=== PATIENT | female | born 1975 | race Caucasian/White ===

== ENCOUNTER 2019-08-08 15:05 | Outpatient (CLI) | payer MEDICAID, SELFPAY ==
[2019-08-08 15:46] LABS: Basophils # 0.2 10^3/uL (0.0-0.1); Basophils % 1.2 %; Eosinophils # 0.4 10^3/uL (0.0-0.8); Eosinophils % 3.2 %; Hematocrit 49.1 % (37.0-47.0); Hemoglobin 16.5 g/dL (11.5-15.3); Lymphocytes # 5.2 10^3/uL (0.8-4.8); Mean Corpuscular HGB Conc 33.6 g/dL (30.0-36.0); Mean Corpuscular Hemoglobin 30.2 pg (28.0-34.0); Mean Corpuscular Volume 89.8 fL (81-99); Monocytes # 0.6 10^3/uL (0.2-0.9); Monocytes % 5.1 %; Neutrophils % 48.3 %; Nucleated Red Blood Cells % 0 %; Platelet Count 312 10^3/cmm (130-400); Red Blood Count 5.47 10^6/uL (4.1-5.3); White Blood Count 12.4 10^3/uL (4.0-10.0)
[2019-08-08 15:54] LABS: Alanine Aminotransferase 11 U/L (0-33); Albumin Level 4.7 g/dL (3.5-5.2); Alkaline Phosphatase 87 IU/L (35-105); Anion Gap 14.4 (5-19); Aspartate Amino Transferase 24 U/L (0-32); Blood Urea Nitrogen 8 mg/dL (6-20); Calcium 10.9 mg/Dl (8.6-10.0); Carbon Dioxide 31 mmol/L (22-29); Chloride 98 mmol/L (98-107); Glomerular Filtration Rate 77.6 mL/min (90-130); Glucose 103 mg/dL (74-109); Potassium 4.4 mmol/L (3.5-5.1); Sodium 139 mmol/L (136-145); Total Bilirubin 0.2 mg/dL (0.15-1.2); Total Protein 7.7 g/dL (6.6-8.7)
[2019-08-08 16:39] LABS: Thyroid Stimulating Hormone 0.16 uIU/mL (0.27-4.20)
[2019-08-08 16:52] LABS: Estmated Average Glucose 128; Hemoglobin A1C 6.1 % (4.0-6.0)
== END 2019-08-08 15:06 | disposition home or self-care (01) ==
LOC: LAB 15:07
PROVIDERS: Family Provider Nurse Practitioner; PCP Nurse Practitioner; Visit Provider Nurse Practitioner
DX: E11.42 Type 2 diabetes mellitus with diabetic polyneuropathy (principal)
CPT/HCPCS: 36415; 80053; 83036; 84443; 85025

== ENCOUNTER 2019-12-06 13:28 | Outpatient (CLI) | payer MEDICAID, SELFPAY ==
[2019-12-06 13:51] LABS: Basophils # 0.2 10^3/uL (0.0-0.1); Basophils % 1.1 %; Eosinophils # 0.4 10^3/uL (0.0-0.8); Eosinophils % 2.6 %; Hematocrit 49.1 % (37.0-47.0); Hemoglobin 16.1 g/dL (11.5-15.3); Lymphocytes # 6.5 10^3/uL (0.8-4.8); Mean Corpuscular HGB Conc 32.8 g/dL (30.0-36.0); Mean Corpuscular Hemoglobin 30.4 pg (28.0-34.0); Mean Corpuscular Volume 92.6 fL (81-99); Mean Platelet Volume 9.7 fL (7.4-10.4); Monocytes # 1.1 10^3/uL (0.2-0.9); Monocytes % 7.9 %; Neutrophils # 5.2 10^3/uL (1.8-7.7); Neutrophils % 39.2 %; Nucleated Red Blood Cells % 0 %; Platelet Count 443 10^3/cmm (130-400); White Blood Count 13.3 10^3/uL (4.0-10.0)
[2019-12-06 14:37] LABS: Alanine Aminotransferase 15 U/L (0-33); Albumin Level 4.8 g/dL (3.5-5.2); Alkaline Phosphatase 92 IU/L (35-105); Anion Gap 16.5 (5-19); Aspartate Amino Transferase 20 U/L (0-32); Blood Urea Nitrogen 8 mg/dL (6-20); Calcium 10.4 mg/dL (8.5-10.5); Carbon Dioxide 28 mmol/L (22-29); Chloride 102 mmol/L (98-107); Globulin 3.2 g/dL (1.3-4.6); Glomerular Filtration Rate 77.6 mL/min (90-130); Glucose 81 mg/dL (65-115); Osmolality Calculated 289 mOsm/kg (285-295); Potassium 4.5 mmol/L (3.5-5.1); Sodium 142 mmol/L (136-145); Total Bilirubin 0.3 mg/dL (0.15-1.2)
== END 2019-12-06 13:29 | disposition home or self-care (01) ==
LOC: LAB 13:33
PROVIDERS: PCP Nurse Practitioner; Visit Provider Transplant Surgery
DX: K86.89 Other specified diseases of pancreas (principal)
CPT/HCPCS: 36415; 80053; 85025

== ENCOUNTER → 2019-12-20 09:31 | Outpatient (BNVA) | payer MEDICAID, SELFPAY | PROVIDERS: PCP Nurse Practitioner; Visit Provider Nurse Practitioner | DX: E78.2 Mixed hyperlipidemia (principal); Z86.73 Personal history of transient ischemic attack (TIA), and cerebral infarction without residual deficits; E11.00 Type 2 diabetes mellitus with hyperosmolarity without nonketotic hyperglycemic-hyperosmolar coma (NKHHC) | CPT/HCPCS: 80061; 82306; 82550; 82947; 83036; 83695; 84439; 84443; 84450; 84460; 85384; 86141 ==

== ENCOUNTER → 2020-03-18 15:05 | Outpatient (BNVA) | payer MEDICAID, SELFPAY | PROVIDERS: PCP Nurse Practitioner; Referring Provider Dermatology; Visit Provider Dermatology | DX: D48.9 Neoplasm of uncertain behavior, unspecified (principal); L82.0 Inflamed seborrheic keratosis; D23.9 Other benign neoplasm of skin, unspecified; F17.210 Nicotine dependence, cigarettes, uncomplicated | CPT/HCPCS: 11102; 17000; 88304; 88305; 99203; 99204 ==

== ENCOUNTER 2020-05-19 09:37 | Outpatient (CLI) | payer MEDICAID, SELFPAY ==
[2020-05-19 10:31] LABS: Chol HDL Ratio 2.32 mg/dL (0.0-4.40); Cholesterol 176 mg/dL (0-200); HDL Cholesterol 76 mg/dL (60-100); LDL Cholesterol Calculated 74 mg/dL (50-129); LDL HDL Ratio 0.97 RATIO (0.00-3.22); Triglycerides 132 mg/dL (0-150)
[2020-05-19 10:42] LABS: Alanine Aminotransferase 13 U/L (0-33); Albumin Level 4.5 g/dL (3.5-5.2); Alkaline Phosphatase 70 IU/L (35-105); Anion Gap 14.7 (5-19); Aspartate Amino Transferase 16 U/L (0-32); Blood Urea Nitrogen 17 mg/dL (6-20); Calcium 9.9 mg/dL (8.5-10.5); Carbon Dioxide 29 mmol/L (22-29); Chloride 100 mmol/L (98-107); Globulin 2.5 g/dL (1.3-4.6); Glomerular Filtration Rate 90.1 mL/min (90-130); Glucose 107 mg/dL (65-115); Osmolality Calculated 290 mOsm/kg (285-295); Potassium 4.7 mmol/L (3.5-5.1); Sodium 139 mmol/L (136-145); Thyroid Stimulating Hormone 3.11 uIU/mL (0.27-4.20); Total Bilirubin 0.3 mg/dL (0.15-1.2)
[2020-05-19 10:45] LABS: Estmated Average Glucose 126
== END 2020-05-19 09:38 | disposition home or self-care (01) ==
LOC: LAB 09:40
PROVIDERS: PCP Nurse Practitioner
DX: E78.01 Familial hypercholesterolemia (principal); R93.1 Abnormal findings on diagnostic imaging of heart and coronary circulation; E11.00 Type 2 diabetes mellitus with hyperosmolarity without nonketotic hyperglycemic-hyperosmolar coma (NKHHC); Z79.899 Other long term (current) drug therapy
CPT/HCPCS: 36415; 80053; 80061; 83036; 84443

== ENCOUNTER → 2020-05-20 15:10 | Outpatient (BNVA) | payer MEDICAID, SELFPAY | PROVIDERS: PCP Nurse Practitioner; Visit Provider Dermatology | DX: D48.9 Neoplasm of uncertain behavior, unspecified (principal) | CPT/HCPCS: 88304 ==

== ENCOUNTER 2020-08-07 15:34 | Outpatient (CLI) | payer MEDICAID, SELFPAY ==
--- NOTE | 2020-08-07 | US_ITS ---
WS: [id number] ULTRASOUND RENAL TECHNIQUE: Ultrasound examination of both kidneys. CLINICAL INFORMATION: Left flank pain, pyelonephritis COMPARISON: None. FINDINGS: RIGHT: Right kidney is normal in size and appearance. Echogenicity: Normal. Cortical thickness: 1.0 cm; Normal. Hydronephrosis: None. Perinephric fluid: None. Right kidney measures: 12.2 cm x 4.3 cm x 4.1 cm. LEFT: Mild left hydronephrosis. Echogenicity: Normal. Cortical thickness: 1.8 cm; Normal. Hydronephrosis: Mild Perinephric fluid: None. Left kidney measures: 10.3 cm x 3.9 cm x 5.6 cm. Normal visualized aorta. Ureteral jets visualized. US/US renal BI* [id number] IMPRESSION: 1. Mild left hydronephrosis. 2. No hydronephrosis right kidney. 3. Both ureteral jets visualized.
== END 2020-08-07 15:35 | disposition home or self-care (01) ==
LOC: RAD 15:39
PROVIDERS: PCP Nurse Practitioner; Visit Provider Family Medicine
DX: R10.9 Unspecified abdominal pain (principal); N12 Tubulo-interstitial nephritis, not specified as acute or chronic; N13.30 Unspecified hydronephrosis
CPT/HCPCS: 76770

== ENCOUNTER → 2020-08-10 12:07 | Outpatient (BNVA) | payer MEDICAID, SELFPAY | PROVIDERS: PCP Nurse Practitioner; Visit Provider Nurse Practitioner | DX: R30.0 Dysuria (principal) | CPT/HCPCS: 80053; 81000; 83036; 84443 ==

== ENCOUNTER → 2021-06-07 16:52 | Outpatient (BNVA) | payer MEDICAID, SELFPAY | PROVIDERS: PCP Nurse Practitioner; Visit Provider Nurse Practitioner | DX: E11.42 Type 2 diabetes mellitus with diabetic polyneuropathy (principal); E03.8 Other specified hypothyroidism; E55.9 Vitamin D deficiency, unspecified | CPT/HCPCS: 80053; 80061; 82306; 83036; 84443 ==

== ENCOUNTER 2021-06-30 13:08 | Outpatient (CLI) | payer MEDICAID, SELFPAY ==
--- NOTE | 2021-06-30 | CT_ITS ---
WS: [email or web address] Exam: CT neck w con* [id number] Date/Time of Exam: 06/30/2021 1:12 PM Reason For Exam: OTALGIA RIGHT EAR DLP: 1072.[address] scans at [facility] use at least one of these dose optimization techniques: automated e xposure control; mA and/or kV adjustment per patient size (includes targeted exams where dose is matc hed to clinical indication); or iterative reconstruction. Compared to noncontrast study performed 09/10/2018. There was no sign of neck mass or significant cervical lymphadenopathy. The submandibular glands and parotid glands are symmetrical side to side. The airway is patent. Vascular structures are unremarkab le in appearance. No lesions seen in the region of the tongue base. Several tiny nodules scattered th roughout the thyroid gland. Benign-appearing coarse calcifications in the right thyroid lobe. The ext ernal auditory canals are clear. The middle ear cavities show no evidence of fluid or soft tissue mas s. The internal auditory canals are not enlarged or eroded. Images of the skull base are unremarkable . Emphysematous changes are noted in the visualized upper lung zones. Small lipomas noted along the a nterior margin of the right and left masseter muscles. Osseous structures are intact. CT/CT neck w con* [id number] IMPRESSION: 1. No sign of neck mass or significant cervical lymphadenopathy. 2. Both thyroid lobes contain small ill-defined nodular densities. 3. Small lipomas identified along the anterior margin of the right and left mas seter muscles. 4. No abnormal fluid collection noted in the middle ear cavities or the mastoid s.
[2021-06-30] MEDS: iohexol 300 mg/mL 100 mL Btl IV (13:33)
== END 2021-06-30 13:09 | disposition home or self-care (01) ==
PROVIDERS: PCP Nurse Practitioner; Visit Provider Specialist
DX: H92.01 Otalgia, right ear (principal); D17.79 Benign lipomatous neoplasm of other sites
CPT/HCPCS: 70491; Q9967

== ENCOUNTER → 2021-09-20 09:36 | Outpatient (BNVA) | payer MEDICAID, SELFPAY | PROVIDERS: PCP Nurse Practitioner; Visit Provider Nurse Practitioner | DX: I10 Essential (primary) hypertension (principal); J44.9 Chronic obstructive pulmonary disease, unspecified; E11.42 Type 2 diabetes mellitus with diabetic polyneuropathy; N95.2 Postmenopausal atrophic vaginitis; E03.8 Other specified hypothyroidism; M79.7 Fibromyalgia | CPT/HCPCS: 80053; 83036; 84443 ==

== ENCOUNTER → 2021-12-28 16:29 | Outpatient (BNVA) | payer MEDICAID, SELFPAY | PROVIDERS: PCP Nurse Practitioner; Visit Provider Nurse Practitioner | DX: J44.9 Chronic obstructive pulmonary disease, unspecified (principal); E11.42 Type 2 diabetes mellitus with diabetic polyneuropathy; N95.2 Postmenopausal atrophic vaginitis; M79.7 Fibromyalgia; I10 Essential (primary) hypertension; R59.9 Enlarged lymph nodes, unspecified | CPT/HCPCS: 80053; 80061; 82043; 83036; 84443; 85007; 85025 ==

== ENCOUNTER 2022-03-21 16:29 | Outpatient (CLI) | payer OTHER, MEDICAID, SELFPAY ==
--- NOTE | 2022-03-21 16:50 | XR_ITS ---
WS: [id number] Exam: XR chest 2V* [id number] Date/Time of Exam: 03/21/2022 4:50 PM Reason For Exam: J44.9 - Chronic obstructive pulmonary disease, unspecified Comparison 09/21/2017. The lungs are hyperinflated and clear. Normal cardiomediastinal silhouette. A permanent cardiac pacer superimposes the left chest. No pleural effusion. Regional bony elements appear normal. XR/XR chest 2V* [id number] IMPRESSION: 1. Pulmonary hyperinflation which may indicate obstructive lung disease. No acu te process.
[2022-03-21 16:51] LABS: Add Urine Microscopic? NO; Charge for UA Resulting for Rev
[2022-03-21 16:59] LABS: Bilirubin Urine Neg (Negative); Blood Urine Neg (Negative); Glucose Urine UA Norm (Normal); Ketones Urine Negative (Negative); Leukocyte Esterase Urine Negative (Negative); Nitrate Urine Negative (Negative); Protein Urine Neg (Negative); Specific Gravity, Urine 1.005 (1.005-1.030); Urine Appearance Clear (CLEAR); Urine Color Yellow (Yellow); Urobilinogen Urine Norm (Negative); pH Urine 6 (5-7)
== END 2022-03-21 16:30 | disposition home or self-care (01) ==
LOC: LAB 16:33
PROVIDERS: PCP Nurse Practitioner; Visit Provider Nurse Practitioner
DX: E11.42 Type 2 diabetes mellitus with diabetic polyneuropathy (principal); J44.9 Chronic obstructive pulmonary disease, unspecified
CPT/HCPCS: 71046; 80053; 81003; 85025

== ENCOUNTER 2022-04-04 10:49 | Outpatient (CLI) | payer OTHER, MEDICAID, SELFPAY ==
--- NOTE | 2022-04-04 10:58 | CT_ITS ---
WS: [id number] CT NECK WITH CONTRAST HISTORY: LOCALIZED SWELLING, MASS AND LUMP,NECK TECHNIQUE: Contiguous 5 mm axial images are performed through the neck with intravenous contrast. Sag ittal and coronal reformats are also submitted. All CT scans at [facility] use at least one o f these dose optimization techniques: automated exposure control; mA and/or kV adjustment per patient size (includes targeted exams where dose is matched to clinical indication); or iterative reconstruc tion. CONTRAST: CONTRAST: Omnipaque 350; 95 mL IV. DLP: 204.52 mGy.cm COMPARISON: 06/30/2021 Nasopharynx, oropharynx, hypopharynx and larynx are unremarkable. No soft tissue masses or abnormal e nhancement. Torus tubarius and fossa of Rosenmuller and parapharyngeal fat are normal. No significant lymphadenopathy is identified. Marker placed along the lateral RIGHT neck at the level of the submandibular gland. No underlying abnormality. No adenopathy. Thyroid gland and salivary glands are normally enhancing with no masses. No osseous abnormalities. Visualized portions of the skull base demonstrate no abnormalities. Orbits and globes are within norm al limits. No soft tissue masses. Small air-fluid level in the RIGHT sphenoid sinus. Chronic emphysematous changes at the lung apices. LEFT subclavian pacer. CT/CT neck w con* [id number] IMPRESSION: 1. No adenopathy or mass noted along the RIGHT neck at the site of the palpabl e abnormality. 2. No cervical chain enlarged lymph nodes. 3. No neck mass is identified. 4. Advanced emphysematous changes at the lung apices.
[2022-04-04] MEDS: iohexol 350 mg/mL 100 mL Btl IV (11:19)
== END 2022-04-04 10:50 | disposition home or self-care (01) ==
LOC: RAD 10:49
PROVIDERS: PCP Nurse Practitioner; Visit Provider Otolaryngology
DX: R22.1 Localized swelling, mass and lump, neck (principal)
CPT/HCPCS: 70491

== ENCOUNTER 2022-05-04 07:50 | Oncology outpatient (recurring) (ONCR) | payer OTHER, MEDICAID, SELFPAY ==
--- NOTE | 2022-05-04 09:34 | MM_ITS ---
WS: [id number] DIAGNOSTIC BILATERAL DIGITAL BREAST TOMOSYNTHESIS MAMMOGRAPHY WITH CAD HISTORY: HODGKIN'S LYMPHOMA COMPARISON: 09/05/2018 and 06/21/2017 TECHNIQUE: Bilateral craniocaudad, mediolateral oblique, and mediolateral views are submitted with to mosynthesis and SM. Computer aided detection utilized. Breast composition: There are scattered areas of fibroglandular density. No suspicious masses or calc ifications. There is benign calcification 12:00 LEFT breast. MM/[place] [id number] IMPRESSION: BI-RADS: 2-Benign FOLLOW UP: 1 Year Follow-up
[2022-05-04 10:02] LABS: Basophils # 0.2 10^3/uL (0.0-0.1); Basophils % 1.6 %; Eosinophils # 0.3 10^3/uL (0.0-0.8); Eosinophils % 2.4 %; Hematocrit 48.1 % (37.0-47.0); Hemoglobin 16.4 g/dL (11.5-15.3); Lymphocytes # 4.3 10^3/uL (0.8-4.8); Lymphocytes % 38.8 %; Mean Corpuscular HGB Conc 34.1 g/dL (30.0-36.0); Mean Corpuscular Hemoglobin 30.4 pg (28.0-34.0); Mean Corpuscular Volume 89.2 fl (81-99); Mean Platelet Volume 10.2 fL (7.4-10.4); Monocytes # 1.2 10^3/uL (0.2-0.9); Monocytes % 10.5 %; Neutrophils # 5.16 10^3/uL (1.8-7.7); Neutrophils % 46.3 %; Nucleated Red Blood Cells % 0 %; Platelet Count 427 10^3/cmm (130-400); Red Blood Count 5.39 10^6/uL (4.1-5.3); Red Cell Distribution Width 14.6 % (12.1-15.1); White Blood Count 11.2 10^3/uL (4.0-10.0)
[2022-05-04 10:04] LABS: Erythrocyte Sedimentation Rate 17 mm/hr (0-15)
[2022-05-04 10:46] LABS: Alanine Aminotransferase 8 U/L (0-33); Albumin Level 4.3 g/dL (3.5-5.2); Alkaline Phosphatase 101 U/L (35-105); Anion Gap 14.3 (5-19); Aspartate Amino Transferase 14 U/L (0-32); Blood Urea Nitrogen 6 mg/dL (6-20); Calcium 10.1 mg/dL (8.5-10.5); Carbon Dioxide 28 mmol/L (22-29); Chloride 99 mmol/L (98-107); Globulin 3.4 g/dL (1.3-4.6); Glomerular Filtration Rate 89.7 mL/min (90-130); Glucose 82 mg/dL (65-115); Iron 56 ug/dL (37-145); Lactate Dehydrogenase 233 U/L (135-214); Osmolality Calculated 281 mOsm/kg (285-295); Percent Saturation 16.1 % (20-50); Potassium 4.3 mmol/L (3.5-5.1); Sodium 137 mmol/L (136-145); Thyroid Stimulating Hormone 3.73 uIU/mL (0.27-4.20); Total Bilirubin 0.3 mg/dL (0.15-1.2); Total Iron Binding Capacity 347 mcg/dl; Total Protein 7.7 g/dL (6.6-8.7); Unsaturated Iron Binding 291 ug/dL (112-347); Vitamin B12 369 pg/mL (232-1245)
[2022-05-04 10:53] LABS: 25 Hydroxy Vitamin D > 100 ng/mL (30-100)
== END 2022-05-23 23:59 | disposition home or self-care (01) ==
PROVIDERS: PCP Nurse Practitioner; Visit Provider Internal Medicine Medical Oncology
DX: E55.9 Vitamin D deficiency, unspecified (principal); C81.11 Nodular sclerosis Hodgkin lymphoma, lymph nodes of head, face, and neck; E03.8 Other specified hypothyroidism; R53.83 Other fatigue
CPT/HCPCS: 36415; 77062; 80053; 82306; 82607; 83540; 83550; 83615; 84443; 85025; 85651; 86140

== ENCOUNTER 2022-05-10 12:19 | Outpatient (CLI) | payer OTHER, MEDICAID, SELFPAY ==
--- NOTE | 2022-05-10 12:45 | USCV_ITS ---
Megan Spain Age: 47 Gender: F : 1975 Exam Date: 05/10/2022 12:50 Ordering Phys: Scar Olmos MD Technologist: JENNIFER [place] [facility] [place]: murmur BP: 138 / 80 HR: 35 Rhythm: Sinus Technical Quality: Adequate MEASUREMENTS (Male / Female) Normal Values 2D ECHO LVOT Diameter 2.0 cm LV Ejection Fraction MOD 2C 63.1 % LV Ejection Fraction 2C AL 63.5 % LA Diameter 2.5 cm LA Width 4.0 cm LA Height 5.4 cm RA Width 3.8 cm RA Height 4.3 cm Aorta at Sinotubular Diameter 2.2 cm IVC Diameter 1.7 cm M-MODE Aortic Annulus Diameter 2.8 cm LA Ao Ratio MM 0.6 MV E Point Septal Separation 0.9 cm DOPPLER AV Peak Velocity 133.0 cm/s LVOT Peak Velocity 105.0 cm/s AV Area Cont Eq vti 3.0 cm squared AV Area Cont Eq pk 2.6 cm squared MV Peak Velocity 181.0 cm/s MV Area PHT 5.1 cm squared Mitral E to A Ratio 1.0 MV E' Velocity 88.0 cm/s Mitral E to MV E' Ratio 25.8 Mitral E to LV E' Lateral Ratio 21.8 Mitral E to LV E' Septal Ratio 32.3 TR Peak Velocity 394.3 cm/s TR Peak Gradient 62.2 mmHg TR Mean Velocity 289.6 cm/s TR Mean Gradient 37.9 mmHg TR Velocity Time Integral 124.3 cm TV Peak E Velocity 78.0 cm/s Right Atrial Pressure 3.0 mmHg Pulmonary Artery Systolic Pressu 65.2 mmHg PV Peak Velocity 115.0 cm/s RV Acceleration Time 0.1 s RV Ejection Time 0.3 s RV AcT/ET 0.3 FINDINGS Left Ventricle Normal LV size and ejection fraction of 63%.no regional wall motion abnormalities. Right Ventricle Pacemaker wire in the right ventricle Right Atrium Pacemaker wire in the right atrium . Left Atrium Mildly increased left atrial size. Mitral Valve Thickened mitral valves. Severe mitral regurgitation with the regurgitant jet almost feeling of the left atrium Aortic Valve Thickened aortic valve. Tricuspid Valve [id number] tricuspid valve regurgitation. Estimated PA pressure of 65 mmHg Pulmonic Valve No intracardiac masses Pericardium No pericardial effusion. Aorta Normal aortic annulus size. IVC Normal inferior vena cava. CONCLUSIONS Severe mitral regurgitation with the regurgitant jet almost feeling of the left atrium. Thickened mitral valves. Normal LV size and ejection fraction of 63%. No regional wall motion abnormalities. Thickened aortic valve. [id number] tricuspid valve regurgitation. Estimated pulmonary artery peak systolic pressure was 65 mmHg. There is no pericardial effusion. There are no intracardiac masses. No similar previous studies are available for comparison Dr Arturo Craig MD FAC (Electronically Signed) Final Date: 10 May 2022 23:17 S
== END 2022-05-10 12:20 | disposition home or self-care (01) ==
LOC: RAD 12:20
PROVIDERS: PCP Nurse Practitioner; Visit Provider Internal Medicine Medical Oncology
DX: R01.1 Cardiac murmur, unspecified (principal); I08.2 Rheumatic disorders of both aortic and tricuspid valves
CPT/HCPCS: 93306

== ENCOUNTER 2022-10-13 13:54 | Oncology outpatient (recurring) (ONCR) | payer OTHER, MEDICAID, SELFPAY ==
[2022-10-13 14:22] LABS: Basophils # 0.2 10^3/uL (0.0-0.1); Basophils % 1.4 %; Eosinophils # 0.3 10^3/uL (0.0-0.8); Eosinophils % 3.1 %; Hematocrit 41.7 % (37.0-47.0); Hemoglobin 14.2 g/dL (11.5-15.3); Lymphocytes # 4.5 10^3/uL (0.8-4.8); Mean Corpuscular HGB Conc 34.1 g/dL (30.0-36.0); Mean Corpuscular Hemoglobin 31.1 pg (28.0-34.0); Mean Corpuscular Volume 91.4 fl (81-99); Monocytes # 0.8 10^3/uL (0.2-0.9); Monocytes % 7.7 %; Neutrophils # 5.13 10^3/uL (1.8-7.7); Neutrophils % 46.6 %; Nucleated Red Blood Cells % 0 %; Platelet Count 340 10^3/cmm (130-400); Red Blood Count 4.56 10^6/uL (4.1-5.3); Red Cell Distribution Width 12.9 % (12.1-15.1)
[2022-10-13 14:57] LABS: Estmated Average Glucose 114; Hemoglobin A1C 5.6 % (4.0-6.0)
[2022-10-13 15:02] LABS: 25 Hydroxy Vitamin D 32 ng/mL (30-100); Alanine Aminotransferase 8 U/L (0-33); Albumin Level 4.2 g/dL (3.5-5.2); Alkaline Phosphatase 75 U/L (35-105); Anion Gap 13.2 (5-19); Aspartate Amino Transferase 14 U/L (0-32); Blood Urea Nitrogen 10 mg/dL (6-20); Calcium 8.8 mg/dL (8.5-10.5); Carbon Dioxide 29 mmol/L (22-29); Chloride 100 mmol/L (98-107); Ferritin 35 ng/mL (15-150); Globulin 2.5 g/dL (1.3-4.6); Glomerular Filtration Rate 106.7 mL/min (90-130); Glucose 103 mg/dL (65-115); Iron 67 ug/dL (37-145); Osmolality Calculated 285 mOsm/kg (285-295); Percent Saturation 22.1 % (20-50); Potassium 4.2 mmol/L (3.5-5.1); Sodium 138 mmol/L (136-145); Total Bilirubin 0.3 mg/dL (0.15-1.2); Total Iron Binding Capacity 303 mcg/dl; Total Protein 6.7 g/dL (6.6-8.7); Unsaturated Iron Binding 236 ug/dL (112-347)
[2022-10-13 16:59] LABS: Lactate Dehydrogenase 166 U/L (135-214)
== END 2022-10-21 23:59 | disposition home or self-care (01) ==
PROVIDERS: Nurse Practitioner Family; PCP Nurse Practitioner; Visit Provider Internal Medicine Medical Oncology
DX: Z08 Encounter for follow-up examination after completed treatment for malignant neoplasm; Z85.72 Personal history of non-Hodgkin lymphomas; R10.12 Left upper quadrant pain; R11.2 Nausea with vomiting, unspecified; F17.210 Nicotine dependence, cigarettes, uncomplicated; Z92.3 Personal history of irradiation
CPT/HCPCS: 36415; 80053; 82306; 82728; 83036; 83540; 83550; 83615; 85025; 99213

== ENCOUNTER → 2022-12-14 11:18 | Outpatient (BNVA) | payer OTHER, MEDICAID, SELFPAY | PROVIDERS: PCP Nurse Practitioner; Visit Provider Nurse Practitioner | DX: E03.8 Other specified hypothyroidism (principal); J44.9 Chronic obstructive pulmonary disease, unspecified; M79.7 Fibromyalgia; I10 Essential (primary) hypertension; E11.42 Type 2 diabetes mellitus with diabetic polyneuropathy; N94.10 Unspecified dyspareunia | CPT/HCPCS: 80053; 80061; 82043; 82607; 83036; 84443; 85025; 86140 ==

== ENCOUNTER → 2023-05-17 10:38 | Outpatient (BNVA) | payer OTHER, SELFPAY | PROVIDERS: PCP Nurse Practitioner; Visit Provider Nurse Practitioner | DX: R94.30 Abnormal result of cardiovascular function study, unspecified (principal); J44.9 Chronic obstructive pulmonary disease, unspecified; E11.42 Type 2 diabetes mellitus with diabetic polyneuropathy; E03.8 Other specified hypothyroidism; M79.7 Fibromyalgia; E55.9 Vitamin D deficiency, unspecified | CPT/HCPCS: 80053; 80061; 82306; 82607; 83036; 84443; 85025 ==

== ENCOUNTER 2023-05-18 16:39 | Outpatient (CLI) | payer OTHER, SELFPAY ==
--- NOTE | 2023-05-18 16:30 | CT_ITS ---
WS: [id number] CT HEAD WITH AND WITHOUT CONTRAST HISTORY: R42 - Dizziness and giddiness TECHNIQUE: Noncontrast 2.5 mm axial images obtained from the vertex to the skull base. Additional mariella ging performed at 2.5 mm axial images status post IV contrast. Bone and soft tissue windows are revie wed. All CT scans at [facility] use at least one of these dose optimization techniques: autom ated exposure control; mA and/or kV adjustment per patient size (includes targeted exams where dose i s matched to clinical indication); or iterative reconstruction. CONTRAST: Omnipaque 350; 100 mL IV. DLP: 2055.54 mGy.cm COMPARISON: 07/23/2017 No acute intracranial hemorrhage, edema or midline shift. Very mild atrophy and small vessel ischemic disease. Remote lacunar infarct along the RIGHT external capsule and at the RIGHT caudate body. New but chronic infarct involving the medial RIGHT occipital lobe. Ventricles are normal size. No inferio r displacement of the cerebellar tonsils. No enhancing mass or vascular malformations identified. Dural venous sinuses are normally enhancing. Visualized comanche of [place] is unremarkable. Paranasal sinuses as visualized: Very small air-fluid level in the posterior RIGHT sphenoid sinus. Mastoid air cells: Clear. Calvarium and scalp: Intact. No abnormalities noted by CT along the internal or external auditory canal. There is no increased sof t tissue or fluid. No bone destruction. IMPRESSION: 1. No acute intracranial hemorrhage or edema. 2. Remote infarcts in the RIGHT external capsule, RIGHT caudate body and medial RIGHT occipital lobe. 3. Mild atrophy and small vessel ischemic disease. 4. No abnormality noted along the RIGHT internal or external auditory canal.
[2023-05-18] MEDS: iohexol 350 mg/mL 500 mL Btl (per mL) IV (16:45)
== END 2023-05-18 16:40 | disposition home or self-care (01) ==
PROVIDERS: PCP Nurse Practitioner; Visit Provider Psychiatry & Neurology Neurology
DX: R42 Dizziness and giddiness (principal); I67.89 Other cerebrovascular disease; Z86.73 Personal history of transient ischemic attack (TIA), and cerebral infarction without residual deficits; H92.09 Otalgia, unspecified ear; R22.1 Localized swelling, mass and lump, neck; S09.90XA Unspecified injury of head, initial encounter; X58.XXXA Exposure to other specified factors, initial encounter
CPT/HCPCS: 70470; Q9967

== ENCOUNTER → 2023-05-31 14:45 | Outpatient (BNVA) | payer OTHER, SELFPAY | PROVIDERS: PCP Nurse Practitioner; Visit Provider Nurse Practitioner | DX: E11.42 Type 2 diabetes mellitus with diabetic polyneuropathy (principal); E55.9 Vitamin D deficiency, unspecified | CPT/HCPCS: 81000 ==

== ENCOUNTER 2023-06-02 09:10 | Outpatient (CLI) | payer OTHER, SELFPAY ==
--- NOTE | 2023-06-02 09:26 | MM_ITS ---
WS: [id number] Bilateral screening 3D tomosynthesis digital mammogram, 06/02/2023 Clinical Data: Z12.31 - Encounter for screening mammogram for malignant ... Comparison: 05/04/2022, 09/05/2018, 06/21/2017, 01/11/2016, 07/08/2011, 01/16/2007. Findings: The breast parenchymal pattern shows fibroglandular tissue. No spiculated masses or clustered calcifi cations are seen. There are no secondary signs of carcinoma. There is a pacemaker generator in the le ft axilla. Impression: 1. Negative bilateral mammogram unchanged. 2. Recommend annual screening mammograms. MM/[place] [id number] BIRADS: 1-Negative FOLLOW UP: 1 Year Follow-up The CAD thread checker was used.
== END 2023-06-02 09:11 | disposition home or self-care (01) ==
LOC: RAD 09:11
PROVIDERS: PCP Nurse Practitioner; Visit Provider Nurse Practitioner
DX: Z12.31 Encounter for screening mammogram for malignant neoplasm of breast (principal)
CPT/HCPCS: 77063; 77067

== ENCOUNTER → 2023-08-09 09:59 | Outpatient (BNVA) | payer OTHER, SELFPAY | PROVIDERS: PCP Nurse Practitioner; Visit Provider Nurse Practitioner | DX: E11.42 Type 2 diabetes mellitus with diabetic polyneuropathy (principal) | CPT/HCPCS: 80053; 81000; 83036 ==

== ENCOUNTER 2023-09-19 10:40 | Outpatient (CLI) | payer OTHER, SELFPAY ==
[2023-09-19 11:15] LABS: Anion Gap 15.9 (5-19); Blood Urea Nitrogen 12 mg/dL (6-20); Calcium 8.7 mg/dL (8.5-10.5); Carbon Dioxide 31 mmol/L (22-29); Chloride 78 mmol/L (98-107); Glomerular Filtration Rate 88.9 mL/min (90-130); Glucose 144 mg/dL (65-115); Osmolality Calculated 256 mOsm/kg (285-295); Sodium 122 mmol/L (136-145)
[2023-09-19 11:22] LABS: Potassium 2.9 mmol/L (3.5-5.1)
== END 2023-09-19 10:41 | disposition home or self-care (01) ==
LOC: LAB 10:41
PROVIDERS: PCP Nurse Practitioner; Visit Provider Nurse Practitioner
DX: E11.42 Type 2 diabetes mellitus with diabetic polyneuropathy (principal)
CPT/HCPCS: 36415; 80048

== ENCOUNTER 2023-09-28 15:42 | Outpatient (CLI) | payer OTHER, SELFPAY ==
[2023-09-28 17:27] LABS: Anion Gap 12.5 (5-19); Blood Urea Nitrogen 16 mg/dL (6-20); Calcium 9.3 mg/dL (8.5-10.5); Carbon Dioxide 34 mmol/L (22-29); Chloride 83 mmol/L (98-107); Glomerular Filtration Rate 88.9 mL/min (90-130); Glucose 125 mg/dL (65-115); Osmolality Calculated 265 mOsm/kg (285-295); Potassium 3.5 mmol/L (3.5-5.1); Sodium 126 mmol/L (136-145)
== END 2023-09-28 15:43 | disposition home or self-care (01) ==
LOC: LAB 15:44
PROVIDERS: PCP Nurse Practitioner; Visit Provider Nurse Practitioner
DX: E87.6 Hypokalemia (principal)
CPT/HCPCS: 80048

== ENCOUNTER → 2024-01-02 09:03 | Outpatient (BNVA) | payer OTHER, SELFPAY | PROVIDERS: PCP Nurse Practitioner; Visit Provider Nurse Practitioner | DX: I10 Essential (primary) hypertension (principal); E03.8 Other specified hypothyroidism; E55.9 Vitamin D deficiency, unspecified | CPT/HCPCS: 80053; 80061; 82306; 82607; 83735; 84443; 85025 ==

== ENCOUNTER 2024-04-09 11:06 | Outpatient (CLI) | payer OTHER, SELFPAY ==
[2024-04-09 12:10] LABS: Anion Gap 12.3 (5-19); Blood Urea Nitrogen 10 mg/dL (6-20); Calcium 8.9 mg/dL (8.5-10.5); Carbon Dioxide 30 mmol/L (22-29); Chloride 100 mmol/L (98-107); Glomerular Filtration Rate 131.1 mL/min (90-130); Glucose 172 mg/dL (65-115); Osmolality Calculated 289 mOsm/kg (285-295); Potassium 4.3 mmol/L (3.5-5.1); Sodium 138 mmol/L (136-145)
== END 2024-04-09 11:07 | disposition home or self-care (01) ==
LOC: LAB 11:07
PROVIDERS: PCP Nurse Practitioner; Visit Provider Nurse Practitioner
DX: I10 Essential (primary) hypertension (principal)
CPT/HCPCS: 36415; 80048

== ENCOUNTER → 2024-07-29 15:53 | Outpatient (BNVA) | payer OTHER, SELFPAY | PROVIDERS: PCP Nurse Practitioner; Visit Provider Nurse Practitioner | DX: E03.8 Other specified hypothyroidism (principal); E11.42 Type 2 diabetes mellitus with diabetic polyneuropathy | CPT/HCPCS: 80053; 82043; 83036; 84443 ==

== ENCOUNTER → 2024-10-31 17:10 | Outpatient (BNVA) | payer OTHER, SELFPAY | PROVIDERS: PCP Nurse Practitioner; Visit Provider Nurse Practitioner | DX: E11.42 Type 2 diabetes mellitus with diabetic polyneuropathy (principal); E03.8 Other specified hypothyroidism; E55.9 Vitamin D deficiency, unspecified; I10 Essential (primary) hypertension | CPT/HCPCS: 80053; 80061; 82306; 83036; 83721; 84443; 85025 ==

== ENCOUNTER 2024-11-04 11:24 | Outpatient (CLI) | payer OTHER, SELFPAY ==
--- NOTE | 2024-11-04 11:20 | MM_ITS ---
WS: [id number] BILATERAL 3D TOMOSYNTHESIS DIGITAL SCREENING MAMMOGRAPHY WITH CAD CLINICAL INFORMATION: Z12.31 - Encounter for screening mammogram for malignant ... HISTORY: Screening mammogram. No current complaints. COMPARISON: 2022 TECHNIQUE: Bilateral CC and MLO views. FINDINGS: Scattered fibroglandular densities bilaterally. No suspicious focal mass, asymmetry, calcifications, or architectural distortion. No evidence of malignancy. Incidental punctate calcification LEFT breast. Biopsy clip LEFT breast. Cardiac pacer. MM/MM scr BI tomosynthesis [id number] IMPRESSION: DENSITY: There are scattered areas of fibroglandular density. BI-RADS: 2 - Benign. FOLLOW UP: 1 Year Follow-up Recommend return to annual screening mammography.
== END 2024-11-04 11:25 | disposition home or self-care (01) ==
PROVIDERS: PCP Nurse Practitioner; Visit Provider Nurse Practitioner
DX: Z12.31 Encounter for screening mammogram for malignant neoplasm of breast (principal); R92.323 Mammographic fibroglandular density, bilateral breasts; R92.1 Mammographic calcification found on diagnostic imaging of breast; Z96.89 Presence of other specified functional implants
CPT/HCPCS: 77063; 77067

== ENCOUNTER → 2025-04-24 14:48 | Outpatient (BNVA) | payer OTHER, SELFPAY | PROVIDERS: PCP Nurse Practitioner; Visit Provider Nurse Practitioner | DX: E11.42 Type 2 diabetes mellitus with diabetic polyneuropathy (principal); E11.9 Type 2 diabetes mellitus without complications | CPT/HCPCS: 80053; 80061; 82043; 83036; 84439; 84443; 84481 ==